=== PATIENT | female | born 1950 | race Caucasian/White ===

== ENCOUNTER → 2017-04-03 | Outpatient (CLI) | payer MEDICARE | LOC: CARD 13:03 | PROVIDERS: ATTEND Internal Medicine Cardiovascular Disease | DX: J44.9 Chronic obstructive pulmonary disease, unspecified (principal) | CPT/HCPCS: 94060; 94729 ==

== ENCOUNTER 2017-04-23 12:09 | Day surgery (SDC) | payer MEDICARE ==
[~2017-04-23] VITALS: Ht 149.9 cm; Wt 57.7 kg
[2017-04-23 13:48] VITALS: BP 125/69
[2017-04-23] MEDS ORDERED: DIPHENHYDRAMINE 50 MG/ML, 1ML IVPush PRN (14:00)
[2017-04-23] MEDS ORDERED: DIPHENHYDRAMINE 50 MG/ML, 1ML ONE (14:02)
[2017-04-23] MEDS ORDERED: HYDR-3245 PO (14:13)
[2017-04-23] MEDS ORDERED: VIT1CAPS9 PO (14:13)
[2017-04-23] MEDS ORDERED: IRON1TAB60 PO (14:13)
[2017-04-23] MEDS ORDERED: CARV6.252 PO (14:13)
[2017-04-23] MEDS ORDERED: BUME2TAB PO (14:13)
[2017-04-23] MEDS ORDERED: OMEP40CA6 PO (14:13)
[2017-04-23] MEDS ORDERED: LUTE40CA PO (14:13)
[2017-04-23] MEDS ORDERED: ASCO500T8 PO (14:13)
[2017-04-23] MEDS ORDERED: OMEG1CAP24 PO (14:13)
[2017-04-23] MEDS ORDERED: AMLO5TAB2 PO (14:13)
[2017-04-23] MEDS ORDERED: ALBU2.5V NEB (14:13)
[2017-04-23] MEDS ORDERED: CALC500T PO (14:13)
[2017-04-23] MEDS ORDERED: FLUT10.6 INH (14:13)
[2017-04-23] MEDS ORDERED: ERGO500017 PO (14:13)
[2017-04-23] MEDS ORDERED: ASPI-496 PO (14:13)
[2017-04-23] MEDS ORDERED: ALBU8.5H8 INH (14:13)
[2017-04-23] MEDS ORDERED: MONT10TA9 PO (14:13)
[2017-04-23] MEDS ORDERED: LIDOCAINE 2%, 20ML ONE (15:32)
[2017-04-23] MEDS ORDERED: FENTANYL PF 100 MCG/2ML ONE (15:32)
[2017-04-23] MEDS ORDERED: VERAPAMIL 2.5 MG/ML, 2ML ONE (15:33)
[2017-04-23] MEDS ORDERED: MIDAZOLAM 1 MG/ML, 2ML ONE ×2 (15:33)
[2017-04-23] MEDS ORDERED: HEPARIN 1,000 UNITS/ML, 10ML ONE (15:33)
== END 2017-04-23 17:15 ==
LOC: CACL 12:09
PROVIDERS: ATTEND Internal Medicine Cardiovascular Disease
DX: I27.20 Pulmonary hypertension, unspecified (principal); J44.9 Chronic obstructive pulmonary disease, unspecified; F17.210 Nicotine dependence, cigarettes, uncomplicated; Z86.19 Personal history of other infectious and parasitic diseases
CPT/HCPCS: 93451; 99156; C1769; C1894; J1200; J2250; J3010; J3490; J1644